=== PATIENT | male | born 2000 | race Caucasian/White ===

== ENCOUNTER 2018-12-04 03:46 | Emergency (ER) | payer SELFPAY ==
[~2018-12-04] VITALS: Ht 167.6 cm; Wt 86.2 kg
--- NOTE | 2018-12-04 03:50 | NUR ---
PT TAKEN TO BED 7
[2018-12-04 03:52] VITALS: BP 121/61
--- NOTE | 2018-12-04 03:57 | NUR ---
PT C/O ABD PAIN X3 HRS. 4 EPISODES OF VOMITING TONIGHT. DENIES N/D. 12/22 SHARP NON RADIATING PAIN. NORMOACTIVE BOWEL SOUNDS X4 QUADRANTS. PT STATES "I FEEL LIKE IM GOING TO EXPLODE". ABD SOFT, ROUND, TENDER TO PALP. RR EVEN, UNLABORED. DENIES CHEST PAIN. LAYING IN BED, CALM. MEDHX: DENIES ALLERGIES: DENIES
--- NOTE | 2018-12-04 03:58 | NUR ---
Dr. Edmond examining patient.
[2018-12-04] MEDS ORDERED: ONDANSETRON 4 MG ODT PO ONE (04:05)
[2018-12-04] MEDS ORDERED: LIDOCAINE VISCOUS 2% 20 ML UDC PO ONE (04:10)
[2018-12-04] MEDS ORDERED: ALUMINUM HYD/MAG/SIMETHICONE 30 ML UDC PO ONE (04:10)
[2018-12-04] MEDS ORDERED: DICYCLOMINE HCL LIQUID 10 MG/5 ML UDC PO ONE (04:10)
[2018-12-04] MEDS ORDERED: PANTOPRAZOLE 40 MG TABEC PO ONE (04:10)
[2018-12-04] MEDS ORDERED: ONDANSETRON 4 MG/2 ML VIAL IM ONE (04:20)
[2018-12-04] MEDS ORDERED: MORPHINE SULFATE 2 MG/ML SYR IM ONE (05:00)
--- NOTE | 2018-12-04 05:41 | NUR ---
Patient discharged with v/s stable. Written and verbal after care instructions given and explained. Patient alert, oriented and verbalized understanding of instructions. Ambulatory with to home. All questions addressed prior to discharge. ID band removed. Patient advised to follow up with PMD. Rx of MAALOX, PROTONIX,TRAMADOL, ZOFRAN given. Patient educated on indication of medication including possible reaction and side effects. Opportunity to ask questions provided and answered. PT GETTING RIDE HOME WITH PARENTS.
[2018-12-04 05:43] VITALS: BP 121/61
== END 2018-12-04 05:41 | disposition home or self-care (01) ==
LOC: MED 03:46
DX: K29.70 Gastritis, unspecified, without bleeding (principal); R03.0 Elevated blood-pressure reading, without diagnosis of hypertension
CPT/HCPCS: 96372; 99284; J2270; J2405; Q0162